=== PATIENT | male | born 2005 | race Caucasian/White ===

== ENCOUNTER 2025-03-06 17:32 | Emergency (ER) | payer SELFPAY ==
--- NOTE | ~2025-03-06 | XR_ITS ---
CHEST RADIOGRAPH CLINICAL HISTORY: cough and anxiety attack . COMPARISON: None TECHNIQUE: Single portable view of the chest. FINDINGS The cardiothymic silhouette is unremarkable. The lungs are clear. IMPRESSION: No focal infiltrate or effusion. Reviewed, dictated and finalized at location A.
--- NOTE | 2025-03-06 17:35 | ECG_ITS ---
Test Date: 2025-03-06 20:15:50 Measurements Intervals [place] Rate: 74 P: 58 SD: 152 QRS: 56 QRSD: 100 T: 25 QT: 372 QTc: 415 Interpretive Statements SINUS RHYTHM No previous ECG available for comparison Electronically Signed On 03-07-2025 14:00:28 CDT by Romeo Morris M.D.
[2025-03-06 18:15] VITALS: BP 149/94; PULSE 73; RESP 16; TEMP 36.6; O2SAT 98
[2025-03-06 20:19] VITALS: BP 170/79; PULSE 74; RESP 16; O2SAT 100
--- NOTE | 2025-03-06 20:19 | ED_ITS ---
HPI - General Adult General Chief complaint: Unspecified Stated complaint: Heart racing, abd pain Time Seen by Provider: 03/06/25 19:46 History of Present Illness HPI narrative: Patient reports he thinks he has been having anxiety attacks, had one earlier today where he felt like his heart was racing and he felt nauseous and slightly short of breath. Started due to lots of stress in his life including his dad who recently was diagnosed with a pneumothorax. Related Data Allergies Allergy/AdvReac Type Severity Reaction Status Date / Time No Known Allergies Allergy Verified 03/06/25 17:33 Review of Systems Review of Systems: All systems reviewed & are unremarkable except as noted in HPI and below Exam Narrative: EXAMINATION OF ORGAN SYSTEMS/BODY AREAS: Constitutional: Vital signs per nursing GENERAL:[No acute distress, non-toxic appearing.] HEAD: Normal with no signs of head trauma. EYES: EOMI, conjunctiva normal ENT: Hearing grossly intact LUNGS: Nonlabored breathing. HEART: [Regular rate and rhythm] ABD: [Soft], [nontender to palpation] EXT: Normal range of motion SKIN: [No rashes or lesions.] NEURO: [Alert and oriented x 3. No gross focal sensory or strength deficits.] PSYCH: Normal affect Course Vital Signs Vital signs: Vital Signs Temperature 97.9 F 03/06/25 18:15 Pulse Rate 73 03/06/25 18:15 Respiratory Rate 16 03/06/25 18:15 Blood Pressure 149/94 H 03/06/25 18:15 Pulse Oximetry 98 03/06/25 18:15 Oxygen Delivery Room Air 03/06/25 18:15 Temperature 97.9 F 03/06/25 18:15 Pulse Rate 62 03/06/25 21:23 Respiratory Rate 18 03/06/25 21:23 Blood Pressure 145/95 H 03/06/25 21:23 Pulse Oximetry 97 03/06/25 21:23 Oxygen Delivery Room Air 03/06/25 18:15 Medical Decision Making [facility] Narrative Medical decision making narrative: Patient presenting here with symptoms consistent with panic attack thankfully resolved while he was in the waiting room. On exam patient is well appearing in NAD; lungs CTAB, NLR. I will obtain EKG and chest xray to rule out arrhythmia/ischemia, pneumothorax, or other cause of chest discomfort/shortness of breath. Chest x-ray on my independent interpretation does not show any acute abnormal ity, no pneumothorax or consolidation. EKG - 12-Lead: Interpreted by me. [Sinus rhythm], normal rate. [Normal] axis. NV-interval [normal]. QRS duration [normal]. QTc [normal]. [No ST segment elevation or depression]. [T-wave normal]. Impression: No EKG evidence of acute ischemia or dysrhythmia. On reevaluation patient is feeling better, resting comfortably, vital signs now stable. I do feel patient is stable for discharge home at this time with followup to their doctor, and return here if symptoms return or worsen. Agreeable to outpatient management. Vital Signs Vital Signs: Vital Signs Temperature 97.9 F 03/06/25 18:15 Pulse Rate 73 03/06/25 18:15 Respiratory Rate 16 03/06/25 18:15 Blood Pressure 149/94 H 03/06/25 18:15 Pulse Oximetry 98 03/06/25 18:15 Oxygen Delivery Room Air 03/06/25 18:15 Temperature 97.9 F 03/06/25 18:15 Pulse Rate 62 03/06/25 21:23 Respiratory Rate 18 03/06/25 21:23 Blood Pressure 145/95 H 03/06/25 21:23 Pulse Oximetry 97 03/06/25 21:23 Oxygen Delivery Room Air 03/06/25 18:15 Discharge Plan Discharge Clinical Impression: Anxiety Patient Disposition: Home Condition: Stable Instructions: Hypertension (ED), Anxiety (ED) Additional Instructions: Please follow-up with a primary care doctor. You can always come back to the hospital if her symptoms return or get worse. Patient Language: B[place] Follow-up/Referrals: Barry Tellez MD [Physician] - 2 Days PHYSICIAN,NURSING PROGRAM DIRECTOR [Primary Care Provider] -
[2025-03-06 21:23] VITALS: BP 145/95; PULSE 62; RESP 18; O2SAT 97
== END 2025-03-06 21:36 | disposition home or self-care (01) ==
PROVIDERS: Emergency Provider Emergency Medicine
DX: F41.9 Anxiety disorder, unspecified (principal)
CPT/HCPCS: 71045; 93005; 99283

== ENCOUNTER 2025-03-09 22:21 | Emergency (ER) | payer SELFPAY ==
[2025-03-09 22:23] VITALS: BP 154/99; PULSE 86; RESP 18; TEMP 36.4; O2SAT 98
[2025-03-09 22:34] LABS: Basophils Percent Auto 0.5 % (0.2-1.2); Eosinophils Absolute Auto 0.1 K/mm3 (0-0.3); Eosinophils Percent Auto 1.1 % (0-4.4); Hematocrit 44.3 % (42.0-52.0); Hemoglobin 15.1 g/dL (14.0-18.0); Immature Granulocyte Absolute 0.02 K/mm3 (0.00-0.031); Immature Granulocyte Percent A 0.2 % (0-0.5); Lymphocytes Absolute Auto 2.84 K/mm3 (0.9-3.2); Lymphocytes Percent Auto 34.8 % (18.3-44.2); Mean Corpuscular HGB Conc 34.1 g/dl (32-36); Mean Corpuscular Hemoglobin 29.5 pg (26-34); Mean Corpuscular Volume 86.7 fl (80-100); Mean Platelet Volume 9.7 fl (7.4-10.4); Monocytes Absolute Auto 0.7 K/mm3 (0.1-0.6); Monocytes Percent Auto 8.8 % (2.6-8.5); Neutrophils Absolute Auto 4.4 K/mm3 (1.3-6.7); Neutrophils Percent Auto 54.6 % (45.5-73.1); Platelet Count Result 279 k/mm3 (150-375); Red Blood Count 5.11 M/mm3 (4.6-6.20); Red Cell Distribution Width 11.7 % (11.5-14.5); White Blood Count 8.2 K/mm3 (4.5-10.0)
[2025-03-09 22:44] LABS: Add Urine Microscopic? YES; Appearance Urine Clear (Clear); Bacteria Urine None Seen /hpf; Bilirubin Urine Negative (Negative); Blood Urine Trace (Negative); Color Urine Yellow (Yellow); Glucose Urine UA Negative (Negative); Ketones Urine 2+ mg/dL (Negative); Leukocyte Esterase Ur Negative LEU/UL (Negative); Nitrate Urine Negative (Negative); Non Pathogenic Casts 0-2; Protein Urine Trace mg/dL (Negative); Squamous Epithelial Cell Urine None Seen /hpf (Few); WBC Urine 0-5 /hpf (0-3); pH Urine 6.5 (5.0-9.0)
[2025-03-09 22:48] LABS: Alanine Aminotransferase 24 U/L (6-50); Albumin Level 5.2 g/dL (3.7-5.6); Alkaline Phosphatase 68 U/L (58-237); Anion Gap 15 mmol/L (4-12); Aspartate Amino Transferase 30 U/L (17-59); Bilirubin,Total 3.2 mg/dL (0.2-1.3); Blood Urea Nitrogen 13 mg/dL (8-21); Calcium 9.5 mg/dL (8.9-10.7); Carbon Dioxide 23 mmol/L (22-30); Chloride 104 mmol/L (98-107); Estimated CRCL calculation 124 ml/min; Estimated Glomerular Filt Rate > 60; Glucose 94 mg/dL (65-110); Lipase 70 U/L (23-300); Potassium 3.5 mmol/L (3.4-5.0); Sodium 142 mmol/L (134-143)
--- NOTE | 2025-03-10 00:22 | ED.GENADULT ---
HPI - General Adult General Chief complaint: Abdominal Pain Stated complaint: lower abdominal pain/ constipation Time Seen by Provider: 03/10/25 00:08 History of Present Illness HPI narrative: This is a 19 year male presenting with left-sided lower abdominal pain. Pain is described as a heavy sensation or pressure. It is associated with constipation. Patient notes her last 5 days he has been doing edibles and large amounts of pizza and wings. He has tried eating fruit juice and blueberries. He also tried Pepto-Bismol advice of his friend. Patient's last bowel movement was earlier today. He had an episode of vomiting 5 days ago after using edible but none since then. He has tolerated p.o. no abdominal surgeries. No fevers. Related Data Allergies Allergy/AdvReac Type Severity Reaction Status Date / Time No Known Allergies Allergy Verified 03/09/25 22:27 Exam Narrative: APPEARANCE: No apparent distress. Head: atraumatic. EYES: EOMI, NOSE: Atraumatic NECK: Trachea midline RESPIRATORY: No increased rate of breathing, CTAB CARDIOVASCULAR: RRR, no peripheral edema ABDOMINAL: Non-distended soft nontender no guarding rebound MUSCULOSKELETAl: No obvious deformities NEURO: Alert. Moving 4/4 extremities SKIN:: Warm, dry. Normal color PSYCHIATRIC: Normal affect Course Vital Signs Vital signs: Vital Signs Temperature 97.6 F 03/09/25 22:23 Pulse Rate 86 03/09/25 22:23 Respiratory Rate 18 03/09/25 22:23 Blood Pressure 154/99 H 03/09/25 22:23 Pulse Oximetry 98 03/09/25 22:23 Oxygen Delivery Room Air 03/09/25 22:23 Temperature 97.6 F 03/09/25 22:23 Pulse Rate 86 03/09/25 22:23 Respiratory Rate 18 03/09/25 22:23 Blood Pressure 154/99 H 03/09/25 22:23 Pulse Oximetry 98 03/09/25 22:23 Oxygen Delivery Room Air 03/09/25 22:23 Medical Decision Making [facility] Narrative Medical decision making narrative: -Course: 19-year-old male presenting 5 days of abdominal pain. His abdominal exam is benign. His vital signs are stable. Laboratory studies within normal limits. Based on his history this is likely constipation, possibly worsened by the Pepto-Bismol he took. Patient will be discharged on MiraLax. Given return precautions and primary care follow-up. -DDX includes but is not limited to: Constipation, gastroenteritis, irritable bowel syndrome Vital Signs Vital Signs: Vital Signs Temperature 97.6 F 03/09/25 22:23 Pulse Rate 86 03/09/25 22:23 Respiratory Rate 18 03/09/25 22:23 Blood Pressure 154/99 H 03/09/25 22:23 Pulse Oximetry 98 03/09/25 22:23 Oxygen Delivery Room Air 03/09/25 22:23 Temperature 97.6 F 03/09/25 22:23 Pulse Rate 86 03/09/25 22:23 Respiratory Rate 18 03/09/25 22:23 Blood Pressure 154/99 H 03/09/25 22:23 Pulse Oximetry 98 03/09/25 22:23 Oxygen Delivery Room Air 03/09/25 22:23 Lab Data 03/09/25 22:29 03/09/25 22:29 Labs: Lab Results 03/09/25 03/09/25 Range/Units 22:29 22:32 WBC 8.2 (4.5-10.0) K/mm3 RBC 5.11 (4.6-6.20) M/mm3 Hgb 15.1 (14.0-18.0) g/dL Hct 44.3 (42.0-52.0) % MCV 86.7 (80-100) fl MCH 29.5 (26-34) pg MCHC 34.1 (32-36) g/dl RDW 11.7 (11.5-14.5) % Plt Count 279 (150-375) k/mm3 MPV 9.7 (7.4-10.4) fl Immature Gran % (Auto) 0.2 (0-0.5) % Neut % (Auto) 54.6 (45.5-73.1) % Lymph % (Auto) 34.8 (18.3-44.2) % Elliott % (Auto) 8.8 H (2.6-8.5) % Eos % (Auto) 1.1 (0-4.4) % Baso % (Auto) 0.5 (0.2-1.2) % Lymph # (Auto) 2.84 (0.9-3.2) K/mm3 Elliott # (Auto) 0.7 H (0.1-0.6) K/mm3 Eos # (Auto) 0.1 (0-0.3) K/mm3 Baso # (Auto) 0.0 (0.0-0.1) K/mm3 Abs Immat Gran (auto) 0.02 (0.00-0.031) K/mm3 Absolute Neuts (auto) 4.4 (1.3-6.7) K/mm3 Absolute Nucleated RBC 0.000 (0.0-0.012) K/mm3 Nucleated RBC % 0.0 (0.0-0.2) % Sodium 142 (134-143) mmol/L Potassium 3.5 (3.4-5.0) mmol/L Chloride 104 (98-107) mmol/L Carbon Dioxide 23 (22-30) mmol/L Anion Gap 15 H (4-12) mmol/L BUN 13 (8-21) mg/dL Creatinine 0.78 (0.7-1.3) mg/dL Estim Creat Clear Calc 124 ml/min Estimated GFR > 60 (59 - ) Glucose 94 (65-110) mg/dL Calcium 9.5 (8.9-10.7) mg/dL Total Bilirubin 3.2 H (0.2-1.3) mg/dL AST 30 (17-59) U/L ALT 24 (6-50) U/L Alkaline Phosphatase 68 (58-237) U/L Total Protein 9.0 H (6.3-8.6) g/dL Albumin 5.2 (3.7-5.6) g/dL Lipase 70 (23-300) U/L Urine Color Yellow (Yellow) Urine Appearance Clear (Clear) Urine pH 6.5 (5.0-9.0) Ur Specific Mccloud 1.030 (1.001-1.035) Urine Protein Trace (Negative) mg/dL Urine Glucose (UA) Negative (Negative) mg/dL Urine Ketones 2+ H (Negative) mg/dL Ur Blood (Man) Trace (Negative) Urine Nitrate Negative (Negative) Urine Bilirubin Negative (Negative) Urine Urobilinogen 1.0 (<2.0) mg/dL Leukocyte Esterase Rfl Negative (Negative) KENDALL/UL Urine RBC 3-5 H (0-2) /hpf Urine WBC 0-5 (0-3) /hpf Ur Squamous Epith Cells None seen (Few) /hpf Urine Bacteria None seen /hpf Urine Casts 0-2 Discharge Plan Discharge Clinical Impression: Constipation Patient Disposition: Home Condition: Stable Instructions: Antibiotic Form, Constipation (DC) Additional Instructions: You were seen in the emergency department for constipation. Please take MiraLax. Please stop taking Pepto-Bismol. Please follow-up with your primary care physician for further management. Develop severe abdominal pain, nausea vomiting, inability to pass gas, or fevers return to the ED for re-evaluation. Patient Language: Korean Prescriptions: New polyethylene glycol 3350 [Miralax] 17 gram/dose powder 17 g PO DAILY Qty: 238 0RF Follow-up/Referrals: PHYSICIAN,OCCUPATIONAL PSYCHOLOGIST [Primary Care Provider] - Evert Gonzalez MD [Physician] - 1 Week (Establish pcp)
== END 2025-03-10 00:35 | disposition home or self-care (01) ==
LOC: ANHED 03-10 00:30
PROVIDERS: Emergency Provider Emergency Medicine
DX: K59.00 Constipation, unspecified (principal)
CPT/HCPCS: 36415; 80053; 81001; 83690; 85025; 99283